=== PATIENT | female | born 1975 | race Two or more races ===

== ENCOUNTER → 2025-05-12 13:02 | Outpatient (REF) | payer OTHER, SELFPAY | LOC: RAD 13:02 | PROVIDERS: ATTENDING PHYSICIAN Family Medicine; FAMILY PHYSICIAN Family Medicine | DX: N92.1 Excessive and frequent menstruation with irregular cycle (principal); N95.8 Other specified menopausal and perimenopausal disorders | CPT/HCPCS: 76830; 76856 ==

== ENCOUNTER → 2025-07-15 11:47 | Outpatient (REF) | payer OTHER, SELFPAY | LOC: MRI 11:47 | PROVIDERS: ATTENDING PHYSICIAN Family Medicine; FAMILY PHYSICIAN Family Medicine | DX: N80.03 Adenomyosis of the uterus (principal); N80.9 Endometriosis, unspecified | CPT/HCPCS: 72197; A9575 ==